=== PATIENT | male | born 1980 | race Two or more races ===

== ENCOUNTER 2018-12-27 15:08 | Emergency (ER) | payer MEDICAID ==
[~2018-12-27] VITALS: Ht 172.7 cm; Wt 91.0 kg
[2018-12-27] MEDS ORDERED: IBUPROFEN 600MG TABLET PO STA (17:18)
[2018-12-27] MEDS ORDERED: LIDOCAINE HCL/PF 1% 10 MG/ML 5ML VIAL IJ ONE (17:30)
[2018-12-27] MEDS ORDERED: BACITRACIN ZINC OINT UDPKT TOP ONE (17:30)
[2018-12-27 17:34] VITALS: BP 132/79
== END 2018-12-27 18:17 | disposition home or self-care (01) ==
LOC: ER 15:08
DX: L03.811 Cellulitis of head [any part, except face] (principal)
CPT/HCPCS: 99283; J3490; Z7610

== ENCOUNTER 2021-07-01 11:05 | Emergency (ER) | payer OTHER, MEDICAID ==
[~2021-07-01] VITALS: Ht 177.8 cm; Wt 88.3 kg
[2021-07-01 11:44] VITALS: BP 142/88
[2021-07-01] MEDS ORDERED: SODIUM CHLORIDE 0.9% 1,000 ML IV ONE (12:00)
[2021-07-01 12:09] LABS: BASOPHILS % 0.7 % (0.0-2.0); EOSINOPHILS % 0.8 % (0.0-5.0); HEMATOCRIT. 45.1 % (42.0-52.0); LYMPHOCYTES % 30.2 % (20.0-50.0); MEAN CORPUSCULAR HEMOGLOBIN 29.3 pg (28.0-32.0); MEAN CORPUSCULAR VOLUME 88.3 fL (80.0-94.0); MEAN PLATELET VOLUME 10.6 fl (7.4-10.4); MONOCYTES % 4.6 % (2.0-8.0); NEUTROPHILS % 63.7 % (40.0-76.0); PLATELET 199 x1000/uL (130-400); RED BLOOD CELL COUNT 5.11 mill/uL (4.7-6.1)
[2021-07-01 12:10] LABS: CHLORIDE 104 mEq/L (98-107)
[2021-07-01 15:10] LABS: CLARITY URINE CLEAR (CLEAR); COLOR URINE YELLOW (YELLOW); KETONES URINE 2+ (NEGATIVE); LEUKOCYTE ESTERASE URINE NEGATIVE (NEGATIVE); NITRITE URINE NEGATIVE (NEGATIVE); OCCULT BLOOD URINE NEGATIVE (NEGATIVE); PROTEIN URINE NEGATIVE (NEGATIVE); SPECIFIC GRAVITY URINE 1.044 (1.005-1.030); UROBILINOGEN URINE 0.2 E.U./dL (0.2-1.0)
[2021-07-01] MEDS ORDERED: METF-414 MT (16:22)
[2021-07-01] MEDS ORDERED: METFORMIN HCL 500MG TABLET PO ONE (16:30)
== END 2021-07-01 16:51 | disposition home or self-care (01) ==
LOC: ER 11:05
DX: E11.65 Type 2 diabetes mellitus with hyperglycemia (principal); I49.9 Cardiac arrhythmia, unspecified
CPT/HCPCS: 36415; 80053; 81003; 82962; 85025; 93005; 99284; J7030

== ENCOUNTER 2021-09-06 08:16 | Emergency (ER) | payer MEDICAID, OTHER ==
[~2021-09-06] VITALS: Ht 170.2 cm; Wt 77.0 kg
[~2021-09-06 08:16] MED LIST: METF-414 MT
[2021-09-06 08:25] VITALS: BP 121/74
[2021-09-06 10:37] LABS: BASOPHILS % 0.9 % (0.0-2.0); EOSINOPHILS % 1.4 % (0.0-5.0); HEMATOCRIT. 45.6 % (42.0-52.0); HEMOGLOBIN. 15.5 g/dL (14.0-18.0); LYMPHOCYTES % 32.6 % (20.0-50.0); MEAN CORPUSCULAR HEMOGLOBIN 30.1 pg (28.0-32.0); MEAN CORPUSCULAR VOLUME 88.6 fL (80.0-94.0); MEAN PLATELET VOLUME 9.6 fl (7.4-10.4); MONOCYTES % 5.3 % (2.0-8.0); NEUTROPHILS % 59.8 % (40.0-76.0); PLATELET 247 x1000/uL (130-400); RED BLOOD CELL COUNT 5.15 mill/uL (4.7-6.1); RED CELL DISTRIBUTION WIDTH 12.9 % (11.6-14.6)
[2021-09-06 10:44] LABS: CHLORIDE 106 mEq/L (98-107)
[2021-09-06] MEDS ORDERED: ERYT1OIN6 LEFTEYE (11:54)
== END 2021-09-06 12:15 | disposition home or self-care (01) ==
LOC: ER 08:28
DX: R42 Dizziness and giddiness (principal); H00.014 Hordeolum externum left upper eyelid; R53.83 Other fatigue
CPT/HCPCS: 36415; 80053; 84484; 85025; 93005; 99285

== ENCOUNTER 2022-06-30 08:55 | Emergency (ER) | payer MEDICAID, OTHER ==
[~2022-06-30] VITALS: Ht 167.6 cm; Wt 75.0 kg
[~2022-06-30 08:55] MED LIST changes: +ERYT1OIN6 LEFTEYE
[2022-06-30 12:00] VITALS: BP 113/57
[2022-06-30 12:13] LABS: BASOPHILS % 0.5 % (0.0-2.0); EOSINOPHILS % 1.4 % (0.0-5.0); HEMATOCRIT. 45.4 % (42.0-52.0); HEMOGLOBIN. 15.6 g/dL (14.0-18.0); LYMPHOCYTES % 39.2 % (20.0-50.0); MEAN CORPUSCULAR HEMOGLOBIN 30.9 pg (28.0-32.0); MEAN CORPUSCULAR VOLUME 89.6 fL (80.0-94.0); MEAN PLATELET VOLUME 9.8 fl (7.4-10.4); MONOCYTES % 5.3 % (2.0-8.0); NEUTROPHILS % 53.6 % (40.0-76.0); PLATELET 215 x1000/uL (130-400); RED BLOOD CELL COUNT 5.07 mill/uL (4.7-6.1); RED CELL DISTRIBUTION WIDTH 13.2 % (11.6-14.6)
[2022-06-30 12:15] LABS: CLARITY URINE CLEAR (CLEAR); COLOR URINE YELLOW (YELLOW); KETONES URINE NEGATIVE (NEGATIVE); LEUKOCYTE ESTERASE URINE NEGATIVE (NEGATIVE); NITRITE URINE NEGATIVE (NEGATIVE); OCCULT BLOOD URINE NEGATIVE (NEGATIVE); PROTEIN URINE NEGATIVE (NEGATIVE); SPECIFIC GRAVITY URINE 1.021 (1.005-1.030); UROBILINOGEN URINE 0.2 E.U./dL (0.2-1.0)
[2022-06-30 12:51] LABS: CHLORIDE 109 mEq/L (98-107)
[2022-06-30] MEDS ORDERED: IOHEXOL-300 100 ML BOTTLE ONE (14:27)
== END 2022-06-30 15:30 | disposition home or self-care (01) ==
LOC: ER 08:55
DX: K62.89 Other specified diseases of anus and rectum (principal); E11.9 Type 2 diabetes mellitus without complications
CPT/HCPCS: 36415; 74177; 80053; 81003; 83690; 85025; 99285; Q9967

== ENCOUNTER 2024-12-22 13:51 | Emergency (ER) | payer OTHER ==
[~2024-12-22] VITALS: Ht 170.2 cm; Wt 76.0 kg
[2024-12-22 14:07] VITALS: O2SAT 99
[2024-12-22] MEDS: TETANUS, DIPHTHERIA, PERTUSSIS VAC/PF 0.5ML (>10YR OLD) IM ONE (14:54)
[2024-12-22] MEDS: KETOROLAC 30MG/ML VIAL IM ONE (14:55)
[2024-12-22] MEDS ORDERED: AMOX1TAB16 MT (14:56)
[2024-12-22] MEDS ORDERED: DOCU100T MT (14:56)
[2024-12-22] MEDS ORDERED: GLYC1MED47 TP (14:56)
[2024-12-22] MEDS ORDERED: LIDO30CR19 TP (14:56)
[2024-12-22 15:05] VITALS: BP 140/71; PULSE 60; RESP 14; TEMP 37; O2SAT 99
== END 2024-12-22 15:28 | disposition home or self-care (01) ==
LOC: ER 13:51
DX: S60.511A Abrasion of right hand, initial encounter (principal); S61.452A Open bite of left hand, initial encounter; K64.4 Residual hemorrhoidal skin tags; E11.9 Type 2 diabetes mellitus without complications; Z79.899 Other long term (current) drug therapy; W55.03XA Scratched by cat, initial encounter; Y93.89 Activity, other specified; Y92.89 Other specified places as the place of occurrence of the external cause; Y99.8 Other external cause status
CPT/HCPCS: 99284; 90715; 90471; 96372; J1885